=== PATIENT | male | born 1975 ===

== ENCOUNTER 2021-08-20 07:02 | Outpatient (CLI) | payer OTHER, SELFPAY ==
[2021-08-20 08:24] VITALS: BMI 26.6
--- NOTE | 2021-08-20 08:35 | ECG_ITS ---
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 Interpretive Statements NAME OF STUDY: EXERCISE SESTAMIBI STRESS TEST INDICATION: [cp/sob, ] EXERCISE DATA: The patient was exercised by Sukumar protocol. Baseline heart rate was 76 beats per minute. Baseline blood pressure was 135/86 millimeters of mercury. Target heart rate was 148 beats per minute. Maximum heart rate achieved was 171 which was 115% of the target heart rate. Maximum blood pressure was 183/69 millimeters of mercury. Total exercise time was 8 minutes 42 seconds. Maximum METs achieved was 10.2, maximum VO2 was 35.7. The reason for ending the test was completion of the protocol. The patient complained of shortness of breath during the stress test, which then resolved at the end of the test. ELECTROCARDIOGRAM: BASELINE: Showed sinus rhythm, normal axis, no significant ST-T changes at the baseline noted. [] EXERCISE: At the peak exercise level, [] No significant ST-T changes suggestive of ischemia noted. [] RECOVERY: During the recovery period, heart rate dropped appropriately. No significant ST-T changes in the recovery suggestive of ischemia noted. [] CONCLUSION: 1. Exercise capacity excellent. 2. Heart rate response was appropriate. 3. Blood pressure response was appropriate. 4. Symptoms not suggestive of ischemia. 5. Exercise stress test was negative for ischemia Electronically Signed On 09-08-2021 17:28:14 COMMUNITY ENGAGEMENT SPECIALIST by David Dixon M.D. [email or web address]
--- NOTE | 2021-08-20 08:36 | NMCV_ITS ---
NM max perf SPECT r/s* [id number] Last Schneider Age: 46 Gender: M : 1975 Exam Date: 08/20/2021 08:36 Ordering Phys: Mishel Guillaume MD ([email or web address]) Technologist: LEO Atkins Exam Location: [facility] Indications: SHORTNESS OF BREATH STRESS TEST [facility] IMAGE PROTOCOL Rest/Stress 1 Exercise Day Radiopharmaceutical Dose (mCi) Administration Site Administered by Rest: Tc-99m 10.8 IV LEO Solano Sestamimaria del rosario Stress:Tc-99m 32.9 IV LEO Solano Sestamibi Rest: 20-Aug-2021 60 Discovery 630 Stress: 20-Aug-2021 15 Discovery 630 Radiopharmaceutical was injected at 95 % maximum heart rate. Images obtained in supine and prone position. SPECT RESULTS Technical Quality: Excellent Raw Data Analysis: Normal Image Corrections: No attenuation or motion correction applied Summed Stress Score: 0 Summed Rest Score: 0 Summed Difference Score: 0 PERFUSION FINDINGS SPECT images demonstrate homogeneous tracer distribution throughout the myocardium. FUNCTIONAL RESULTS (calculated via Gated SPECT) Stress Image LV EF (%): 80 Stress EDV (mL):64 TID: 0.67 Stress ESV (mL):13 Rest Image LV EF (%): 80 FUNCTIONAL FINDINGS: There is normal left ventricular systolic function. IMPRESSIONS Myocardial perfusion imaging is normal. EKG segment will be documented separately. Mishel Guillaume MD (Electronically Signed) Final Date: 21 August 2021 15:45 S
[2021-08-20 10:02] VITALS: BP 120/82; PULSE 115
== END 2021-08-20 07:03 | disposition home or self-care (01) ==
LOC: RAD 07:11 → CDL 07:16
PROVIDERS: Family Provider Family Medicine; PCP Family Medicine; Visit Provider Internal Medicine Cardiovascular Disease
DX: R07.9 Chest pain, unspecified (principal); R06.02 Shortness of breath
CPT/HCPCS: 78452; 93017; A9500